=== PATIENT | female | born 1970 | race Caucasian/White ===

== ENCOUNTER → 2017-10-18 | Outpatient (CLI) | payer BC, OTHER ==
--- NOTE | 2017-10-18 19:09 | NM ---
EXAM DESCRIPTION: Bone Scan, 3Phase CLINICAL HISTORY: NECK PAIN COMPARISON: MRI scan of the cervical spine on the same visit. TECHNIQUE: Patient injected with 29.9 mCi of technetium 99M MDP IV. Immediate flow gamma camera images were obtained of the cervical spine from various planes. "Blood pool" images were then obtained of the cervical spine from various planes. Delayed gamma camera images from various planes were obtained 3 hr after injection. FINDINGS: On the immediate dynamic phase and 1 minute blood pool phase, there is no abnormal activity in the cervical spine. Symmetric activity in the facial structures and skull as well. On the delayed images, there is increased activity at the C6 or C7 level of the cervical spine. Normal activity in the thoracic spine with broad mild thoracolumbar levoscoliosis. Increased activity/uptake at the L4 or L5 level. Symmetric activity in the remaining axial and appendicular skeleton including the long bones and flat bones. Normal soft tissue activity in the kidneys and urinary bladder. IMPRESSION: 1. Triple phase radionuclide bone imaging showing no abnormal activity on all 3 phases in the cervical spine. Increased activity at the C6 or C7 level on delayed sequence could be a result of osteoarthritis spondylosis or old trauma. Please see MRI cervical spine examination and report. 2. Activity at L4 or L5 in the lumbar spine more likely to represent osteoarthritis or trauma. Cannot exclude inflammatory process with images only recorded during the delayed phase. Electronically signed by: Surendra Bowen MD 10/18/2017 7:08 PM TECHNICAL SUPPORT ASSOCIATE
--- NOTE | 2017-10-19 09:35 | MRI ---
EXAM DESCRIPTION: Cervical Spine w/Contrast: MRI. CLINICAL HISTORY: NECK PAIN COMPARISON: Noncontrast cervical MRI from outside imaging facility on 08/27/2017. TECHNIQUE: Multiplanar MRI, multiple sequences, without and with gadolinium IV contrast High-field. FINDINGS: On the noncontrast T1 sagittal sequence, the C5 and C6 vertebral bodies show predominantly low signal which extends into the bilateral pedicles. Anterior endplate ridging and disc bulging with disc space loss. Grade 1 retrolisthesis and posterior disc osteophyte bulge encroaching on the cord. Minimal kyphosis. No vertebral body collapse or destructive lesion is noted. These vertebral bodies show heterogeneously increased signal on inversion recovery including the bilateral pedicles. Minimal bright signal in the disc space. Normal marrow signal in the remaining vertebral bodies and posterior elements. On the postcontrast sequence, both vertebral bodies and pedicles at both levels enhance to a similar degree as the remaining vertebral bodies.. Remaining discs and disc spaces are unremarkable with no enhancement or abnormal inversion recovery signal. No paravertebral soft tissue mass or abnormal paravertebral enhancement. Normal signal in the cord with no abnormal enhancement. IMPRESSION: C5 and C6 vertebral bodies with decreased T1 signal compared to remaining vertebral bodies but with heterogeneous enhancement similar to the remaining vertebral bodies. Similar signal and enhancement in the pedicles. Advanced spondylosis of the disc space with posterior disc osteophyte complex impressing on the cord and bilateral foraminal narrowing. Minimal fluid signal in the disc space. These findings when correlated with triple phase bone scan findings indicate that there may be osteomyelitis secondary to discitis, versus metastatic disease. Consult with nuclear medicine fellow Dr. Herman Santana M.D., indicated that vertebral bodies are frequently false negative for osteomyelitis on triple phase bone scan, due to reduced blood flow. If there is bone metastatic disease, bone scan shows no other abnormal activity uptake except in the lumbar spine. Consider bone marrow biopsy at C5 and C6. Body hybrid PET CT scan should also be a consideration. Electronically signed by: Surendra Bowen MD 10/19/2017 9:31 AM PAIRER SUBSTANDARD
== END ==
LOC: NM 09:32
PROVIDERS: ATTEND General Practice
DX: R93.7 Abnormal findings on diagnostic imaging of other parts of musculoskeletal system (principal); M54.2 Cervicalgia; M54.5 Low back pain
CPT/HCPCS: 72142; 78315; A9503

== ENCOUNTER → 2018-11-04 | Outpatient (CLI) | payer BC ==
--- NOTE | 2018-11-04 16:37 | CT ---
Study: CT Chest. Indication: R91.8 Technique: CT imaging of the chest obtained after intravenous administration of contrast. This exam was performed according to our departmental dose-optimization program, which includes automated exposure control, adjustment of the mA and/or kV according to patient size and/or use of iterative reconstruction technique. Comparison: None. Findings: Atherosclerosis great vessels and aorta. Mild cardiomegaly. No pathologically enlarged lymphadenopathy. Patchy noncalcified pulmonary nodules throughout the lungs with somewhat irregular margins. The largest in the superior aspect of the left lower lobe on image 24 measures up to 11 mm and demonstrates subtle cavitation. These could reflect septic emboli. Patchy subsegmental atelectasis posteriorly. No pleural effusion or pneumothorax. Impression: Scattered noncalcified pulmonary nodules throughout the lungs with somewhat irregular margins/opacities. There is subtle cavitation the largest lesion in the left lower lobe. These could reflect septic emboli. Metastatic disease and granulomatous disease are also a consideration. Pulmonology consultation advised. At minimum, follow-up CT chest with contrast in 3 months recommended. Mild cardiomegaly. Atherosclerosis. Electronically signed by: Jignesh Arreaga MD 11/04/2018 4:34 PM CDT
== END ==
LOC: CT 15:31
PROVIDERS: ATTEND General Practice
DX: R91.8 Other nonspecific abnormal finding of lung field (principal); I51.7 Cardiomegaly; I70.0 Atherosclerosis of aorta

== ENCOUNTER → 2019-02-12 | Outpatient (CLI) | payer BC ==
--- NOTE | 2019-02-14 15:42 | CT ---
EXAM DESCRIPTION: Chest w/Contrast : Computed Tomography. CLINICAL HISTORY: 48 years Female PULMONARY NODULE COMPARISON: CT scan of the chest with contrast 11/04/2018. TECHNIQUE: Spiral-axial scans at 5 x 5 mm intervals through the lungs and thorax with IV contrast. 2.5 x 5 mm lung algorithm axial reconstructions. Coronal and sagittal 2.0 Mm reconstructions. No adverse reactions. Total Exam DLP: 232.69 mGy-cm. This exam was performed according to our departmental dose-optimization program which includes automated exposure control, adjustment of the mA and/or kV according to patient size and/or use of iterative reconstruction technique; to reduce radiation dose to as low as reasonably achievable (ALARA). Nodule measurements under 10 mm are given as mean value of 3 axes diameters. FINDINGS: Lungs and large airways: 5 mm solid triangular-shaped nodule in the posterior subpleural left apex, image 4/24, stable since the prior study. 4 mm triangular-shaped solid subpleural nodule lateral right apex on image 4/35. 5 mm semisolid nodule in the right upper lobe on image 4/49 is slightly smaller since the prior study. 3 mm nodule on the same image anterior lateral subpleural with pleural extension not well seen on the prior study. 5 mm semisolid nodule lateral right upper lobe on image 2/13 is stable since the prior study. 1 mm bilateral subpleural groundglass nodule on image 4/43 stable since the prior study. Stable 3 mm groundglass nodule possibly associated with the horizontal fissure on image 4/57. Groundglass density in the superior segment of the right lower lobe medially on image 4/60, measuring approximately 5 mm is decreased in size since the prior study. A 5 mm groundglass nodule slightly more laterally on the prior study, is no longer seen. At the same level, a groundglass density in the superior segment of the left lower lobe has decreased in size since the prior study, now measuring 7 mm. Groundglass nodule 4 mm left upper lobe on image 4/33 not seen on the prior study. Smaller nodule superior segment left lower lobe posterior subpleural level on prior study, image 2/20, is no longer seen. Bilateral posterior dependent atelectasis has decreased since the prior study. Pleural spaces: Minimal pleural thickening in the apices. No pleural effusion or pneumothorax. Mediastinum and Gema: Soft tissue densities in the anterior mediastinum not masslike or enlarged nodes. No enlarged lymph nodes elsewhere in the lateral dominant soft tissue masses. Great vessels and Heart: Atherosclerotic calcifications of the aortic arch. Soft tissues of neck base, axillae, and chest wall: Bilateral axillary lymph nodes normal size. No dominant soft tissue masses. Heterogeneous thyroid gland 1.8 cm minimally enhancing nodule anterior right thyroid lobe. Upper abdomen: Included peritoneal space is unremarkable. Included adrenal glands spleen liver and stomach are negative. Osseous structures: Anterior fusion construct in the lower cervical spine. No lytic or blastic lesions. IMPRESSION: 1. Multiple semisolid, groundglass, and solid nodules. One small nodule in the right upper lobe not seen on the prior study but with pleural extensions and shape is most likely a peripleural nodule. Lack of visualization on prior study may be due to non-lung algorithm technique with thicker sections. [facility] Best Practice recommendations utilizing Fleischner Society 2017 guidelines for multiple nodules. Multiple pulmonary nodules. Most severe: 4.0 mm solid pulmonary nodule within the upper lobe. If patient is low risk for malignancy, no routine follow-up imaging is recommended; if patient is high risk for malignancy, a non-contrast Chest CT at 12 months is optional. If performed and the nodule is stable at 12 months, no further follow-up is recommended. These guidelines do not apply to patients younger than 35 years, immunocompromised patients, and patients with cancer. Follow up in patients with significant comorbidities as clinically warranted. For lung cancer screening, adhere to Lung-RADS guidelines. Reference: Radiology. 2017; 284(1):228-43. 2.1.8 cm incidental thyroid nodule. Right thyroid lobe. Recommend thyroid US. Reference: J Am Purnima Radiol. 2015 Sep;12(2): 143-50 Electronically signed by: Surendra Bowen MD 02/14/2019 3:39 PM CDT
== END ==
LOC: CT 15:30
PROVIDERS: ATTEND Internal Medicine
DX: R91.8 Other nonspecific abnormal finding of lung field (principal); E04.1 Nontoxic single thyroid nodule

== ENCOUNTER → 2019-06-27 | Outpatient (CLI) | payer BC ==
--- NOTE | 2019-06-27 16:48 | CT ---
EXAM DESCRIPTION: Soft Tissue Neck w/Contrast: Computed Tomography CLINICAL HISTORY: 48 years Female, Leokocytosis COMPARISON: Chest radiograph February 2019. TECHNIQUE: Spiral, axial 2.5 x 2.5 mm scans through the neck soft tissues after infusion of IV contrast. Sagittal and coronal 2.0 mm reconstructions. No adverse reactions. Total Exam DLP: 389.53 mGy-cm. This exam was performed according to our departmental CT dose-optimization program which includes automated exposure control, adjustment of the mA and/or kV according to patient size and/or use of iterative reconstruction technique; to reduce radiation dose to as low as reasonably achievable (ALARA). FINDINGS: Normal enhancement in the submandibular glands, sublingual glands, and parotid glands. Marked effacement of the posterior nasopharynx with enlarged tonsillar tissue. The torus tubarius and fossa of Rosenmuller bilaterally are obscured due to soft tissue swelling. No definite abscess. Also swelling of the soft palate and uvula with significant narrowing of the oropharynx relatively symmetric. Hypopharynx and epiglottis are unremarkable as well as the glottis. Bilaterally enlarged parapharyngeal lymph nodes difficult to separate from other soft tissues. Carotid space lymph nodes and paracervical lymph nodes are not enlarged. Partially enhancing 2.1 x 1.9 cm nodule in the right lobe of the thyroid gland predominantly in the upper pole with a 1.1 x 1.5 cm nonenhancing nodule in the left thyroid lobe. No soft tissue masses or lymph nodes around the thyroid gland or neck base. Paranasal sinuses are unremarkable with bilateral ostiomeatal units are intact. Prior anterior cervical disc fusion C5-C6 with no bony canal or neural foraminal stenosis and alignment near-anatomic. Bilateral scattered blebs in the included lung parenchyma with pleural-based blebs. Groundglass nodule lateral left apex and also subpleural right upper lobe. IMPRESSION: 1. Inflammatory changes in the posterior nasopharynx involving the tonsillar tissue with effacement of the fossa of Rosenmuller and torus tubarius (anterior eustachian tubes) and near obstruction of the nasopharynx. No definite abscess. 2. Swelling of the soft palate and uvula with significant narrowing of the upper oropharynx. No definite abscess. Salivary glands are unremarkable. Parapharyngeal adenopathy. 3. Partially enhancing or nonenhancing nodules in the thyroid gland. Also seen on prior chest CT scan. Patient has had fine-needle thyroid aspiration biopsy prior to the current CT scan. CRITICAL COMMUNICATION: The critical value was discussed directly by phone by Dr. Bowen, with Mr. Nadeem Zapata, physician's hair assistant at approximately 1640 hours, on 06/27/2019. Electronically signed by: Surendra Bowen MD 06/27/2019 4:47 PM MOBILE MANAGER
== END ==
LOC: US 15:37
PROVIDERS: ATTEND Urology
DX: E04.2 Nontoxic multinodular goiter (principal); J39.2 Other diseases of pharynx; J34.9 Unspecified disorder of nose and nasal sinuses; K13.70 Unspecified lesions of oral mucosa; D72.829 Elevated white blood cell count, unspecified; R59.0 Localized enlarged lymph nodes

== ENCOUNTER → 2019-07-16 | Outpatient (CLI) | payer BC ==
--- NOTE | 2019-07-17 13:44 | MRI ---
EXAM DESCRIPTION: MRA Head and/or Neck CLINICAL HISTORY: VISUAL FIELD DEFECTS COMPARISON: None. TECHNIQUE: 3D [id number] thin-section axial acquisitions through the base of the skull and the [place]. Non contrast. MIP reconstructions. FINDINGS: Bilateral signal voids in the distal vertical segments of the intracranial ICAs in the skull base at the apices of the petrous bones bilaterally which is interpreted to be artifactual. Caliber of the left ICA larger than the right. Transverse segments, the petrous bones, cavernous segments and segments in the siphon on and supraclinoid segments contain central signal flow void, but no stenosis or peripheral focal lesions. Irregular signal at the origin of the small left posterior communicating artery, with irregular signal extending to the left ICA bifurcation to form the A1 segment of the left JULIO C and left MCA. Caliber is unremarkable in these vessels, and proximal branch vessels from JULIO C and MCA are negative. Small left posterior communicating artery. Irregular flow in the right supraclinoid ICA with moderate flow in the right posterior communicating artery. Markedly decreased flow and caliber of the A1 segment of the right JULIO C (axial image 301/80) and the proximal right MCA (axial image 301/94) and branches. Bilateral JULIO C flow distal to the anterior communicating artery is symmetric. Branches from the right JULIO C are unremarkable. The decreased flow in the right MCA distribution extends above the ventricles in the cortical region of the posterior right frontal and the right parietal lobe as well as in the cortical right temporal lobe (right MCA distribution). No aneurysm, vasculitis, or mass effect in the anterior circulation. Distal left vertebral artery is not visualized the right vertebral artery junction with the basilar artery just distal to the junction of the basilar with the left vertebral artery. At this junction, there is irregular signal on the lateral aspect. Axial 3-D image 301/21. PICA vessels, AICA vessels, and superior cerebellar vessels bilaterally unremarkable. Basilar artery supplies most of the flow in the left posterior cerebral artery with a small contribution from the left posterior communicating artery. Flow is slightly more to the right posterior cerebral artery from the basilar and in the contribution from the right anterior communicating artery. No aneurysm, mass effect, significant stenosis or vasculitis in the posterior circulation. IMPRESSION: 1. Possible thrombosis versus atherosclerotic changes causing significant stenosis at the bifurcation of the right supraclinoid ICA with significantly diminished flow into the right A1 segment of the JULIO C and right MCA and branch vessels. Significantly decreased flow in the cortical regions of the right temporal lobe and the right parietal lobe compared to the left. Flow into the right posterior communicating artery from the supraclinoid right ICA, proximal to the bifurcation, is unremarkable. 2. Possible thrombosis versus atherosclerotic changes causing irregular flow signal at the junction of the right vertebral artery and right basilar artery. 3. Longitudinal central flow void in the petrous segment, cavernous segment, and siphon of the left intracranial ICA, significance is uncertain. Irregular flow signal in the supraclinoid left ICA, but normal caliber of the A1 segment of the left JULIO C and the proximal left MCA. CRITICAL COMMUNICATION: The critical value was discussed directly by phone by Dr. Bowen, with Mr. Andres Zapata, physician's trading assistant at approximately 1330 hours, on 07/17/2019. Electronically signed by: Surendra Bowen MD 07/17/2019 1:43 PM [facility]
== END ==
LOC: MRI 13:00
PROVIDERS: ATTEND Nurse Practitioner
DX: I65.21 Occlusion and stenosis of right carotid artery (principal); I77.9 Disorder of arteries and arterioles, unspecified; G44.52 New daily persistent headache (NDPH)

== ENCOUNTER → 2020-01-29 | Outpatient (CLI) | payer BC ==
--- NOTE | 2020-01-30 17:02 | MRI ---
EXAM DESCRIPTION: Cervical Spine: MRI. CLINICAL HISTORY: 49 years Female CERVICAL RADICULOPATHY COMPARISON: MRI scan of the cervical spine without and with IV gadolinium contrast August and October 2017. TECHNIQUE: Multiplanar, high-field MRI, multiple sequences, non-contrast Cervical spine. FINDINGS: Since the prior study, ACDF at C5-C6 levels with interbody fusion. Minimal canal narrowing. Bilateral neural foraminal narrowing but no stenosis more right than left. Degenerative hypertrophy left facet joint. No abnormal soft tissue edema at this site anterior or posterior. No cord compression. C2-C3: Trace anterolisthesis 2 mm. Minimal disc desiccation. Significant increase in hypertrophic facet arthrosis on the left with near stenosis of the neural foramen. Right neuroforamen and canal are patent. C3-C4: Disc and right facet joint unremarkable. Minimal hypertrophy of the left facet. Canal and neural foramina are patent. C4-C5: Normal signal in the disc with disc space preserved. Significant increase in hypertrophic left facet arthrosis with near stenosis of the left neural foramen. Right neural foramen and canal are patent. C6-C7: Trace retrolisthesis. Disc with normal signal and disc space preserved. Tiny posterior midline bulge. Facet joints unremarkable. Canal and neural foramina are patent. Normal signal in the remaining discs with no bulging. Disc spaces preserved. Canal and neural foramina are patent. Facet joints unremarkable. Spinal alignment reduced lordosis at the C5-C6 level.. No cord compression or cord edema. Atlantoaxial joint negative.. Base of the cerebellar tonsils is above the level of the foramen magnum. Paravertebral soft tissues show a circumscribed nodule measuring 1.9 g 1.3 cm in the right thyroid lobe not as well seen on the prior study. Vertebral bodies are not compressed at any level. Normal marrow signal in the remaining vertebral bodies and the posterior elements. IMPRESSION: 1. ACDF at C5-C6 level since the prior study. No complications. 2. Significant increase in facet degenerative hypertrophy on the left since the prior study at C2-C3 with near stenosis of the neural foramen. 3. Significant increase in left facet degenerative hypertrophy since the prior study also at C4-C5 with no stenosis of the left neural foramen. 4. 1.9 cm right thyroid nodule. [facility] Best Practice guidelines: If incidental thyroid nodule < 1.0 cm, no follow-up imaging is recommended; if >= 1.0 cm, recommend thyroid US. Reference: J Am Purnima Radiol. 2015 Sep;12(2): 143-50. Electronically signed by: Surendra Bowen MD 01/30/2020 5:01 PM CDT
== END ==
LOC: MRI 14:00
PROVIDERS: ATTEND General Practice
DX: M54.12 Radiculopathy, cervical region (principal); M46.92 Unspecified inflammatory spondylopathy, cervical region; E04.1 Nontoxic single thyroid nodule; Z98.1 Arthrodesis status